=== PATIENT | male | born 1970 | race Caucasian/White ===

== ENCOUNTER 2020-03-17 01:52 | Outpatient (CLI) | payer OTHER, SELFPAY ==
[2020-03-17 18:38] LABS: SARS-CoV-2 RNA PCR Negative
== END 2020-03-17 01:53 | disposition home or self-care (01) ==
LOC: ANHCOVIDDT 01:52
PROVIDERS: PCP Internal Medicine; Visit Provider Internal Medicine Gastroenterology
DX: Z01.812 Encounter for preprocedural laboratory examination (principal); Z20.822 Contact with and (suspected) exposure to COVID-19
CPT/HCPCS: C9803; U0003; U0005

== ENCOUNTER 2020-03-20 00:44 | Day surgery (SDC) | payer OTHER, SELFPAY ==
[2020-03-09 09:30] VITALS: BMI 33.4
[2020-03-20 06:50] VITALS: BP 134/83; PULSE 92; RESP 18; TEMP 36; O2SAT 96; BMI 33.7
[2020-03-20] MEDS: LACTATED RINGERS 1,000 ML 150 ML IV CONT (07:10)
--- NOTE | 2020-03-20 07:27 | WPDANESEPP ---
Anes - Eval Pre Procedure Procedure: Operation Date: 03/20/20 08:00 Proposed Procedures p Screening Colonoscopy - Lex Rossi MD Date/Time: 03/20/20 07:27 Pre Op Diagnosis: neoplasm screening Patient Data Age: 49 Gender: M Height: 1.88 m Weight: 119.4 kg Last Vital Signs Temp 36.0 C L 03/20/20 06:50 Pulse 92 03/20/20 06:50 Resp 18 03/20/20 06:50 BP 134/83 03/20/20 06:50 Pulse Ox 96 03/20/20 06:50 Allergies Allergy/AdvReac Type Severity Reaction Status Date / Time No Known Allergies Allergy Verified 03/20/20 06:48 Home Medications Medication Instructions Recorded Confirmed Type sodium,potassium,mag sulfates 17.5 See Rx Instructions PO .COMPLEX 02/04/20 03/09/20 Rx gram-3.13 gram-1.6 gram oral soln #354 ml doxycycline hyclate 100 mg PO BID 03/09/20 03/20/20 History Patient hx anesthesia problems: none Family hx anesthesia problems: none PMFSH Past Medical History Medical History (Updated 03/20/20 @ 07:27 by Vikram Long CRNA) Anxiety Obesity Surgical History Surgical History (Updated 12/24/19 @ 08:03 by Maritza Butler [facility]) H/O adenoidectomy History of tonsillectomy [place] teeth removed Family History Family History (Updated 12/24/19 @ 08:03 by Maritza Butler CMA) Grandparent Cancer Acute myocardial infarction Cerebrovascular accident Mother Cancer Social History Social History (Updated 12/24/19 @ 08:03 by Maritza Butler CMA) Smoking status: Never smoker Alcohol intake: current Drinks per week: 12 Alcohol use details: beer Living arrangements: with family Spiritual care concerns: No Exam Day of Procedure 03/20/20 07:27
--- NOTE | 2020-03-20 07:34 | WPDANESEPPF ---
Anes - Initial Pre Proc Eval Procedure: Operation Date: 03/20/20 08:00 Proposed Procedures p Screening Colonoscopy - Lex Rossi MD Date/Time: 03/20/20 07:34 Surgeon: Lex Rossi MD Pre Op Diagnosis: neoplasm screening Patient Data Age: 49 Gender: M Height: 6 ft 2 in Weight: 119.4 kg Last Vital Signs Temp 96.8 F L 03/20/20 06:50 Pulse 92 03/20/20 06:50 Resp 18 03/20/20 06:50 BP 134/83 03/20/20 06:50 Pulse Ox 96 03/20/20 06:50 Allergies Allergy/AdvReac Type Severity Reaction Status Date / Time No Known Allergies Allergy Verified 03/20/20 06:48 Home Medications Medication Instructions Recorded Confirmed Type sodium,potassium,mag sulfates 17.5 See Rx Instructions PO .COMPLEX 02/04/20 03/09/20 Rx gram-3.13 gram-1.6 gram oral soln #354 ml doxycycline hyclate 100 mg PO BID 03/09/20 03/20/20 History Patient hx anesthesia problems: none Family hx anesthesia problems: none PMFSH Past Medical History Medical History (Updated 03/20/20 @ 07:27 by Vikram Long CRNA) Anxiety Obesity Surgical History Surgical History (Updated 12/24/19 @ 08:03 by Maritza Butler [facility]) H/O adenoidectomy History of tonsillectomy [place] teeth removed Family History Family History (Updated 12/24/19 @ 08:03 by Maritza Butler CMA) Grandparent Cancer Acute myocardial infarction Cerebrovascular accident Mother Cancer Social History Social History (Updated 12/24/19 @ 08:03 by Maritza Butler [employer]) Smoking status: Never smoker Alcohol intake: current Drinks per week: 12 Alcohol use details: beer Living arrangements: with family Spiritual care concerns: No Anes - Eval Final PreProcedure Day of Procedure 03/20/20 07:35 Patient weight: obese Heart: regular rate and rhythm Lungs: clear to auscultation Airway: Mallampati scale class III Neurological: alert and oriented Last oral intake: >/= 8 hours ASA classification: II Emergent: no Anesthetic plan: proceed Anesthesia type and monitoring: general GIVS and standard monitoring Informed Consent: The patient's anesthetic plan and its attendant risks and benefits were discussed with the patient/family/POA. Questions were solicited and answers provided to the satisfaction of the patient/family/POA.
--- NOTE | 2020-03-20 07:51 | PM.HPGS ---
History of Present Illness History of Present Illness Consent: Risks, benefits, and alternatives have been discussed and questions answered. Patient agrees to proceed with procedure. Chief complaint: neoplasm screening Narrative: Bear Alcala is a 49 year old male here for first screening colonoscopy Review of Systems Constitutional: Constitutional: Denies headache(s) and Denies weakness Eyes: Eyes: Denies blurry vision ENT: Reports Normal hearing present, Denies headache(s) and Denies neck pain Cardiovascular: Cardiovascular: Denies chest pain and Denies dyspnea Respiratory: Respiratory: Denies dyspnea Gastrointestinal: Gastrointestinal: Reports no additional gastrointestinal complaints Genitourinary: Genitourinary: Denies dysuria Musculoskeletal: Musculoskeletal: Denies neck pain Integumentary/Breasts: Skin/Breast: Denies dry skin Neurologic: Reports Normal hearing present, Denies headache(s) and Denies weakness Psychiatric: Psychiatric: Denies anxiety Endocrine: Endocrine: Denies change in body appearance Hematologic/Lymphatic: Hematologic/Lymphatic: Denies easy bleeding Allergic/Immunologic: Allergic/Immunologic: Denies urticaria PMFSH Past Medical History Medical History (Updated 03/20/20 @ 07:27 by Vikram Long CRNA) Anxiety Obesity Surgical History Surgical History (Updated 12/24/19 @ 08:03 by Maritza Butler [facility]) H/O adenoidectomy History of tonsillectomy [place] teeth removed Family History Family History (Updated 12/24/19 @ 08:03 by Maritza Butler [facility]) Grandparent Cancer Acute myocardial infarction Cerebrovascular accident Mother Cancer Social History Social History (Updated 12/24/19 @ 08:03 by Maritza Butler [facility]) Smoking status: Never smoker Alcohol intake: current Drinks per week: 12 Alcohol use details: beer Living arrangements: with family Spiritual care concerns: No Meds Home Medications and Allergies Home Medications Medication Instructions Recorded Confirmed Type sodium,potassium,mag sulfates 17.5 See Rx Instructions PO .COMPLEX 02/04/20 03/09/20 Rx gram-3.13 gram-1.6 gram oral soln #354 ml doxycycline hyclate 100 mg PO BID 03/09/20 03/20/20 History Allergies Allergy/AdvReac Type Severity Reaction Status Date / Time No Known Allergies Allergy Verified 03/20/20 06:48 Vital Signs Vital Signs - 24 hr 03/20/20 06:50 Temperature 96.8 F L Pulse Rate 92 Respiratory Rate 18 Blood Pressure 134/83 Pulse Oximetry 96 Exam Const: General: comfortable and no acute distress HENMT: General nose exam: Normal nares present Eyes: General: appearance normal, both eyes and all related structures Neck: Neck: no JVD Resp: Auscultation: clear to auscultation bilaterally Cardio: Rate: regular rate Rhythm: regular rhythm GI: Inspection: non-distended GI Palp: Yes Soft to palpation Skin: General skin exam: normal color Neuro: General: gait normal Speech: normal speech Extrem: General: normal to inspection Psych: Mental Status: mental status grossly normal Assessment and Plan Assessment and plan (1) Screening for colon cancer: Code(s): Z12.11 - Encounter for screening for malignant neoplasm of colon Status: Acute Assessment and Plan: ok to go home after recovery
[2020-03-20 08:13] VITALS: BP 95/52; PULSE 81; RESP 16; O2SAT 96
[2020-03-20 08:23] VITALS: BP 151/90; PULSE 78; RESP 20; O2SAT 99
[2020-03-20 08:33] VITALS: BP 162/97; PULSE 80; RESP 18; O2SAT 99
== END 2020-03-20 08:45 | disposition home or self-care (01) ==
PROVIDERS: PCP Internal Medicine; Visit Provider Internal Medicine Gastroenterology
PROC: 0DJD8ZZ Inspection of Lower Intestinal Tract, Via Natural or Artificial Opening Endoscopic (ICD-10-PCS; CPT 45378; principal; 2020-03-20 08:00)
DX: Z12.11 Encounter for screening for malignant neoplasm of colon (principal); K64.8 Other hemorrhoids; E66.9 Obesity, unspecified; Z68.33 Body mass index [BMI] 33.0-33.9, adult
CPT/HCPCS: 45378; C9803; J2704; J7120; U0003; U0005

== ENCOUNTER 2022-11-21 17:15 | Emergency (ER) | payer BC, SELFPAY ==
--- NOTE | ~2022-11-21 | XR_ITS ---
EXAMINATION: XR chest 2V Exam Date/Time: 11/21/2022 17:36 CDT HISTORY: cp Comparison: None. RESULT: Lines, tubes, and devices: None. Lungs and pleura: Clear. Cardiomediastinal silhouette: Unremarkable. Other: No acute osseous or upper abdominal finding. IMPRESSION: No acute cardiopulmonary process. Reviewed, dictated and finalized at location K.
--- NOTE | 2022-11-21 17:16 | ECG_ITS ---
Measurements Intervals [place] Rate: 84 P: 56 [place]: 179 QRS: 17 QRSD: 89 T: 51 QT: 357 QTc: 424 Interpretive Statements SINUS RHYTHM INCOMPLETE RIGHT BUNDLE BRANCH BLOCK DELAYED PRECORDIAL R/S TRANSITION BORDERLINE T WAVE ABNORMALITY- ANTERIOR LEADS BASELINE ARTIFACT- I, II, III, AVR, AVF, V3-V4 BORDERLINE ECG NO PREVIOUS ECG AVAILABLE FOR COMPARISON Electronically Signed On 11-21-2022 18:51:18 CDT by Aquilino Blood D.O.
[2022-11-21 17:24] VITALS: BP 197/99; PULSE 86; RESP 17; TEMP 36.7; O2SAT 98
[2022-11-21 17:38] LABS: Basophils Percent Auto 0.5 % (0.2-1.2); Eosinophils Absolute Auto 0.2 K/mm3 (0-0.3); Eosinophils Percent Auto 2.1 % (0-4.4); Hematocrit 48.5 % (42.0-52.0); Hemoglobin 16.9 g/dL (14.0-18.0); Immature Granulocyte Absolute 0.02 K/mm3 (0.00-0.031); Immature Granulocyte Percent A 0.3 % (0-0.5); Lymphocytes Absolute Auto 2.36 K/mm3 (0.9-3.2); Lymphocytes Percent Auto 32.3 % (18.3-44.2); Mean Corpuscular HGB Conc 34.8 g/dl (32-36); Mean Corpuscular Volume 94.7 fl (80-100); Mean Platelet Volume 9.1 fl (7.4-10.4); Monocytes Absolute Auto 0.7 K/mm3 (0.1-0.6); Neutrophils Percent Auto 54.8 % (45.5-73.1); Platelet Count Result 175 k/mm3 (150-375); Red Blood Count 5.12 M/mm3 (4.6-6.20); Red Cell Distribution Width 12.8 % (11.5-14.5); White Blood Count 7.3 K/mm3 (4.5-10.0)
[2022-11-21 17:47] LABS: Alanine Aminotransferase 56 U/L (6-50); Albumin Level 4.6 g/dL (3.5-5.1); Alkaline Phosphatase 56 U/L (38-126); Anion Gap 8 mmol/L (8-16); Aspartate Amino Transferase 43 U/L (17-59); Bilirubin,Total 0.7 mg/dL (0.2-1.3); Blood Urea Nitrogen 12 mg/dL (9-20); Calcium 9.4 mg/dL (8.4-10.2); Carbon Dioxide 25 mmol/L (22-30); Chloride 103 mmol/L (98-107); Estimated CRCL calculation 94 ml/min; Estimated Glomerular Filt Rate > 60; Glucose 98 mg/dL (65-110); Lipase 195 U/L (23-300); Prothrombin Time 13.2 Seconds (11.1-14.7); Sodium 136 mmol/L (137-145)
[2022-11-21 17:58] LABS: Troponin I < 0.012 ng/mL (0.000-0.034)
[2022-11-21 19:45] VITALS: BP 180/111; PULSE 72; RESP 18; TEMP 36.8; O2SAT 97
[2022-11-21 22:04] VITALS: BP 178/112; PULSE 72; RESP 14; O2SAT 100
[2022-11-21] MEDS: ASPIRIN 81 MG CHEWABLE TABLET 324 MG PO (22:06)
[2022-11-21 22:46] LABS: Troponin I < 0.012 ng/mL (0.000-0.034)
[2022-11-21] MEDS: BELLADONNA ALK/PHENOB ELIX 10 ML, MAG HYDROX/ALUMINUM HYD/SIMETH 30 ML, LIDOCAINE HCL 2... PO (23:17)
[2022-11-21 23:32] VITALS: BP 173/106; PULSE 66; RESP 20; O2SAT 97
--- NOTE | 2022-11-21 23:56 | ED.GENADULT ---
HPI - General Adult General Chief complaint: Chest Pain Stated complaint: cp Time Seen by Provider: 11/21/22 22:47 History of Present Illness HPI narrative: Patient 52-year-old gentleman who presents emerged from with chief complaint of chest pain. Patient reports for the last 4 days he had a discomfort feeling in his lower portion of his chest. Patient reports nonradiating reports that he has no shortness of breath denies diaphoresis and reports is not worsened or improved by anything. Patient states is very mild and the patient decided today that he should talk to the nurse recommended that he should come to the emergency department for evaluation. The patient reports no prior history of cardiac disease reports he is just on antibiotic for acne. The patient denies fever patient reports no trauma Related Data Home Medications Medication Instructions Recorded Confirmed doxycycline hyclate 100 mg capsule 100 mg PO BID 03/09/20 03/20/20 Allergies Allergy/AdvReac Type Severity Reaction Status Date / Time No Known Allergies Allergy Verified 03/20/20 06:48 Review of Systems Review of Systems: A 10 system review of systems was completed on the patient and is negative except for what is stated in the HPI. Nursing and ancillary documentation was reviewed. [facility] Past Medical History Medical History Anxiety Obesity Surgical History Surgical History H/O adenoidectomy History of tonsillectomy [place] teeth removed Family History Family History Grandparent Cancer Acute myocardial infarction Cerebrovascular accident Mother Cancer Social History Social History Smoking status: Never smoker Alcohol intake: current Drinks per week: 12 Alcohol use details: beer Living arrangements: with family Spiritual care concerns: No Exam Narrative: GENERAL: Well-appearing, well-nourished, and in no acute distress. HEAD: Normocephalic, atraumatic. EYES: PERRLA and EOMI. ENT: Nares clear, no rhinorrhea or epistaxis. Mucous membranes moist. NECK: Supple. CHEST: Clear to auscultation. No respiratory distress. HEART: Regular rate and rhythm. No murmur heard. Normal peripheral pulses. ABDOMEN: Soft, nontender, nondistended, normal active bowel sounds. EXTREMITIES: Normal range of motion. No edema. SKIN: Warm, dry, no rash. NEURO: No focal deficits. Alert and oriented x3. PSYCH: Normal mood and affect. Course Vital Signs Vital signs: Vital Signs Temperature 36.7 C 11/21/22 17:24 Pulse Rate 86 11/21/22 17:24 Respiratory Rate 17 11/21/22 17:24 Blood Pressure 197/99 H 11/21/22 17:24 Pulse Oximetry 98 11/21/22 17:24 Oxygen Delivery Room Air 11/21/22 17:24 Temperature 36.8 C 11/21/22 19:45 Pulse Rate 66 11/21/22 23:32 Respiratory Rate 20 11/21/22 23:32 Blood Pressure 173/106 H 11/21/22 23:32 Pulse Oximetry 97 11/21/22 23:32 Oxygen Delivery Room Air 11/21/22 17:24 Medical Decision Making MDM Narrative Medical decision making narrative: Differential diagnosis includes ACS, atypical chest pain, reflux, pleurisy, musculoskeletal pain EKG was obtained which showed no acute ST elevations is incomplete right bundle branch block. Laboratory studies were obtained which showed a normal CBC electrolytes are within normal limits liver enzymes showed minimally elevated ALT but otherwise within normal limits Lipase was 195 Troponin was -0-hour and 3-hour Chest x-ray showed no focal infiltrates. Vital Signs Vital Signs: Vital Signs Temperature 36.7 C 11/21/22 17:24 Pulse Rate 86 11/21/22 17:24 Respiratory Rate 17 11/21/22 17:24 Blood Pressure 197/99 H 11/21/22 17:24 Pulse Oximetry 98 09/
[2022-11-22 00:08] VITALS: BP 165/95; PULSE 96; RESP 18; O2SAT 97
== END 2022-11-22 00:09 | disposition home or self-care (01) ==
PROVIDERS: General Practice; Emergency Provider Emergency Medicine; PCP Family Medicine
DX: R07.89 Other chest pain (principal); F41.9 Anxiety disorder, unspecified
CPT/HCPCS: 36415; 71046; 80053; 83690; 84484; 85025; 85610; 85730; 93005; 99284; A9270